=== PATIENT | male | born 1985 | race Caucasian/White ===

== ENCOUNTER 2017-01-18 17:26 | Emergency (ER) | payer SELFPAY ==
[~2017-01-18] VITALS: Ht 185.4 cm; Wt 74.8 kg
[~2017-01-18 17:26] MED LIST: MOTRIN600 MG PO; NKM; VALIUM2 MG ORAL
[2017-01-18 17:28] VITALS: BP 142/99
[2017-01-18] MEDS ORDERED: IBUPROFEN600 MG ORAL (19:09)
[2017-01-18] MEDS ORDERED: ROBAXIN-750750 MG PO (19:09)
[2017-01-18 19:28] VITALS: BP 137/84
[2017-01-18 19:29] VITALS: BP 142/99
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
== END 2017-01-18 19:45 | disposition home or self-care (01) ==
LOC: EDBD 17:26 → EMR 17:54
DX: M25.512 Pain in left shoulder (principal); V43.92XA Unspecified car occupant injured in collision with other type car in traffic accident, initial encounter; Y92.410 Unspecified street and highway as the place of occurrence of the external cause; Y99.8 Other external cause status
CPT/HCPCS: 99284